=== PATIENT | female | born 1935 | race Caucasian/White ===

== ENCOUNTER 2023-01-29 10:05 | Inpatient (IN) | payer OTHER ==
[2023-01-29 11:27] LABS: HEMATOCRIT 23.6 % (32.4-45.2); HEMOGLOBIN 7.6 GM/dL (10.7-15.3); MCH 27.5 pg (25.7-33.7); MEAN PLT VOLUME 7.7 fl (7.5-11.1); PLATELET COUNT 200 10^3/uL (134-434); RBC 2.75 M/mm3 (3.60-5.2); RDW 14.9 % (11.6-15.6); WHITE BLOOD COUNT 13.5 K/mm3 (4.0-10.0)
[2023-01-29 11:39] LABS: INR 1.03 (0.83-1.09)
[2023-01-29 11:48] LABS: POTASSIUM 4.1 mmol/L (3.5-5.1)
[2023-01-29 11:52] LABS: CALCIUM 7.7 mg/dL (8.5-10.1)
[2023-01-29 11:53] LABS: ALBUMIN 2.6 g/dl (3.4-5.0); BLOOD UREA NITROGEN 38.7 mg/dL (7-18)
[2023-01-29 11:56] LABS: ACTIVATED PTT > 400.0 SECONDS (25.2-36.5)
[2023-01-29 11:57] LABS: BILIRUBIN,TOTAL 0.7 mg/dL (0.2-1); CREATININE 0.9 mg/dL (0.55-1.3)
[2023-01-29] MEDS ORDERED: methylPREDNISolone NA SUCC 125 MG/2 ML VIAL IVPUSH ONE (12:08)
[2023-01-29] MEDS ORDERED: PANTOPRAZOLE SODIUM 40 MG VIAL ONE (12:29)
[2023-01-29] MEDS ORDERED: methylPREDNISolone NA SUCC 125 MG/2 ML VIAL ONE (12:29)
[2023-01-29] MEDS: D5-1/2NS+20 MEQ KCL - 20 MEQ/1,000 ML INFUS.BAG IV SCH (12:43)
[2023-01-29] MEDS: PANTOPRAZOLE SODIUM 40 MG VIAL IVPUSH SCH (12:43)
[2023-01-29 13:52] LABS: BASO % 0.2 % (0-2.0); HEMATOCRIT 20.4 % (32.4-45.2); LYMPH % 4.6 % (8-40); MCH 27.6 pg (25.7-33.7); MCHC 33.2 g/dl (32.0-36.0); MEAN CELL VOLUME 83.1 fl (80-96); MEAN PLT VOLUME 7.3 fl (7.5-11.1); NEUT % 90.2 % (42.8-82.8); PLATELET COUNT 224 10^3/uL (134-434); RBC 2.45 M/mm3 (3.60-5.2); RDW 14.8 % (11.6-15.6)
[2023-01-29 14:00] LABS: HEMOGLOBIN 6.8 GM/dL (10.7-15.3)
[2023-01-29 18:19] VITALS: BMI 18.8
[2023-01-29] MEDS: ATORVASTATIN CA 10 MG TABLET (FP) PO SCH (21:56)
[2023-01-30] MEDS: PANTOPRAZOLE SODIUM 40 MG VIAL IVPUSH SCH ×2 (01:03→09:25)
[2023-01-30 03:21] LABS: HEMATOCRIT 26.6 % (32.4-45.2); HEMOGLOBIN 9.1 GM/dL (10.7-15.3); MCH 28.8 pg (25.7-33.7); MEAN CELL VOLUME 84.5 fl (80-96); MEAN PLT VOLUME 7.1 fl (7.5-11.1); PLATELET COUNT 180 10^3/uL (134-434); RBC 3.15 M/mm3 (3.60-5.2); RDW 14.6 % (11.6-15.6); WHITE BLOOD COUNT 8.4 K/mm3 (4.0-10.0)
[2023-01-30 04:16] LABS: ANISOCYTOSIS 1+; MACROCYTOSIS 0
[2023-01-30] MEDS: LEVOTHYROXINE NA 100 MCG TABLET (FP) PO SCH (07:28)
[2023-01-30] MEDS: metoPROLOL SUCCINATE 25 MG TAB.SR.24H (FP) PO SCH (09:25)
[2023-01-30 10:12] LABS: BASO % 0.1 % (0-2.0); HEMATOCRIT 26.3 % (32.4-45.2); LYMPH % 5.8 % (8-40); MCH 29.1 pg (25.7-33.7); MCHC 34.1 g/dl (32.0-36.0); MEAN CELL VOLUME 85.6 fl (80-96); MEAN PLT VOLUME 7.5 fl (7.5-11.1); MONO % 8.4 % (3.8-10.2); NEUT % 85.7 % (42.8-82.8); PLATELET COUNT 187 10^3/uL (134-434); RBC 3.08 M/mm3 (3.60-5.2); WHITE BLOOD COUNT 9.4 K/mm3 (4.0-10.0)
[2023-01-30] MEDS: HYDROCORTISONE SOD SUCCINATE 100 MG/2 ML VIAL IVPB SCH ×2 (10:23→18:04)
[2023-01-30 10:26] LABS: POTASSIUM 3.9 mmol/L (3.5-5.1)
[2023-01-30 10:39] LABS: CALCIUM 7.7 mg/dL (8.5-10.1)
[2023-01-30 10:40] LABS: ALBUMIN 2.5 g/dl (3.4-5.0); BLOOD UREA NITROGEN 24.3 mg/dL (7-18)
[2023-01-30 10:43] LABS: CREATININE 0.8 mg/dL (0.55-1.3)
[2023-01-30 10:44] LABS: TOT PROT 4.6 g/dl (6.4-8.2)
[2023-01-30 10:45] LABS: BILIRUBIN,TOTAL 0.7 mg/dL (0.2-1)
[2023-01-30] MEDS: D5-1/2NS+20 MEQ KCL - 20 MEQ/1,000 ML INFUS.BAG IV SCH (14:11)
[2023-01-30] MEDS: ATORVASTATIN CA 10 MG TABLET (FP) PO SCH (21:33)
[2023-01-31] MEDS: HYDROCORTISONE SOD SUCCINATE 100 MG/2 ML VIAL IVPB SCH ×3 (01:35→17:24)
[2023-01-31] MEDS: D5-1/2NS+20 MEQ KCL - 20 MEQ/1,000 ML INFUS.BAG IV SCH ×2 (01:37→13:20)
[2023-01-31] MEDS: LEVOTHYROXINE NA 100 MCG TABLET (FP) PO SCH (06:04)
[2023-01-31] MEDS: PANTOPRAZOLE 40 MG TABLET PO SCH (10:00)
[2023-01-31] MEDS: metoPROLOL SUCCINATE 25 MG TAB.SR.24H (FP) PO SCH (10:00)
[2023-01-31 11:16] LABS: BASO % 0.1 % (0-2.0); EOS % 0.1 % (0-4.5); HEMATOCRIT 26.7 % (32.4-45.2); HEMOGLOBIN 9.2 GM/dL (10.7-15.3); LYMPH % 4.7 % (8-40); MCH 29.1 pg (25.7-33.7); MCHC 34.3 g/dl (32.0-36.0); MEAN CELL VOLUME 84.7 fl (80-96); MEAN PLT VOLUME 7.1 fl (7.5-11.1); MONO % 7.1 % (3.8-10.2); PLATELET COUNT 218 10^3/uL (134-434); RBC 3.15 M/mm3 (3.60-5.2); RDW 15.2 % (11.6-15.6); WHITE BLOOD COUNT 8.4 K/mm3 (4.0-10.0)
[2023-01-31 11:47] LABS: IRON SERUM 27 ug/dL (50-175)
[2023-01-31 11:48] LABS: TOTAL IRON BINDING CAPACITY 278 ug/dL (250-450)
[2023-01-31] MEDS ORDERED: IRON SUCROSE INJECTION 200 MG in SODIUM CHLORIDE 90 ML IVPB ONE (15:00)
[2023-01-31 15:50] VITALS: RESP 20
[2023-01-31] MEDS: ATORVASTATIN CA 10 MG TABLET (FP) PO SCH (22:09)
[2023-02-01] MEDS: HYDROCORTISONE SOD SUCCINATE 100 MG/2 ML VIAL IVPB SCH (02:10)
[2023-02-01] MEDS: LEVOTHYROXINE NA 100 MCG TABLET (FP) PO SCH (06:11)
[2023-02-01 10:00] LABS: HEMATOCRIT 30.5 % (32.4-45.2); MCH 28.8 pg (25.7-33.7); MCHC 32.9 g/dl (32.0-36.0); MEAN CELL VOLUME 87.6 fl (80-96); MEAN PLT VOLUME 7.5 fl (7.5-11.1); PLATELET COUNT 246 10^3/uL (134-434); RBC 3.48 M/mm3 (3.60-5.2); RDW 15.5 % (11.6-15.6); WHITE BLOOD COUNT 12.4 K/mm3 (4.0-10.0)
[2023-02-01] MEDS ORDERED: CALCIUM 250MG/VIT-D 125 UNITS 1 COMBO TABLET PO SCH (10:00)
[2023-02-01] MEDS ORDERED: predniSONE 20 MG TABLET (UD) PO SCH (10:00)
[2023-02-01] MEDS: PANTOPRAZOLE 40 MG TABLET PO SCH (10:18)
[2023-02-01] MEDS: metoPROLOL SUCCINATE 25 MG TAB.SR.24H (FP) PO SCH (10:18)
[2023-02-01 10:24] LABS: POTASSIUM 3.6 mmol/L (3.5-5.1)
[2023-02-01 13:07] VITALS: BP 133/71; PULSE 73; TEMP 97.8
== END 2023-02-01 15:11 | disposition home or self-care (01) | DRG 386 ==
LOC: JER 10:05 → JERBED 11:32 → J8W 17:38
PROVIDERS: ADMIT Family Medicine; ATTEND Family Medicine
DX: K50.011 Crohn's disease of small intestine with rectal bleeding (principal); Z68.1 Body mass index [BMI] 19.9 or less, adult; I10 Essential (primary) hypertension; E78.5 Hyperlipidemia, unspecified; K57.90 Diverticulosis of intestine, part unspecified, without perforation or abscess without bleeding; E03.9 Hypothyroidism, unspecified; D50.0 Iron deficiency anemia secondary to blood loss (chronic); K31.819 Angiodysplasia of stomach and duodenum without bleeding; R63.0 Anorexia
CPT/HCPCS: 36415; 36430; 74174-TC; 80048; 80053; 82272; 82607; 82728; 83516; 83540; 83550; 84443; 85025; 85027; 85610; 85730; 86140; 86255; 86671; 86922; 99285-25; J1756; P9058

== ENCOUNTER 2023-02-28 16:22 | Emergency (ER) | payer OTHER ==
[2023-02-28 16:46] VITALS: BMI 20.1
[2023-02-28] MEDS ORDERED: PANTOPRAZOLE SODIUM 40 MG VIAL IVPUSH ONE (16:46)
[2023-02-28] MEDS ORDERED: MAG HYDROX/AL HYDROX/SIMETH 30 ML UNIT-DOSE CUP PO ONE (16:46)
[2023-02-28 17:09] LABS: HEMATOCRIT 37.5 % (32.4-45.2); HEMOGLOBIN 12.3 G/dL (10.7-15.3); MCH 28.7 pg (25.7-33.7); MCHC 32.9 g/dl (32.0-36.0); MEAN CELL VOLUME 87.4 fl (80-96); MEAN PLT VOLUME 6.8 fl (7.5-11.1); PLATELET COUNT 233.5 10^3/uL (134-434); RBC 4.29 10^6/uL (3.60-5.2); RDW 15.6 % (11.6-15.6); WHITE BLOOD COUNT 12.7 10^3/uL (4.0-10.8)
[2023-02-28] MEDS ORDERED: MAG HYDROX/AL HYDROX/SIMETH 30 ML UNIT-DOSE CUP ONE (17:23)
[2023-02-28] MEDS ORDERED: PANTOPRAZOLE SODIUM 40 MG VIAL ONE (17:23)
[2023-02-28 17:29] LABS: INR 1.52 (0.83-1.09); PROTHROMBIN TIME (PATIENT) 17.6 SEC (9.7-13.0)
[2023-02-28 17:56] LABS: ALBUMIN 3.3 g/dl (3.4-5.0); BILIRUBIN,TOTAL 8.5 mg/dl (0.2-1); BLOOD UREA NITROGEN 24.4 mg/dl (7-18); CALCIUM 8.1 mg/dl (8.5-10.1); CREATININE 1.4 mg/dl (0.6-1.3); MAGNESIUM 1.6 mg/dL (1.8-2.4); POTASSIUM 4.3 mmol/L (3.5-5.1); SGOT/AST 190.7 U/L (15-37); SGPT/ALT 521.8 U/L (7-52); TOT PROT 5.1 g/dl (6.4-8.2)
[2023-02-28] MEDS ORDERED: SODIUM CHLORIDE 0.9% 1000 ML INFUS.BAG IV ONE (18:13)
[2023-02-28] MEDS ORDERED: MAGNESIUM SULF 50% (8.12 MEQ/2 ML-1 GM VIAL) IVPB ONE (18:15)
[2023-02-28] MEDS ORDERED: MAGNESIUM SULFATE IN WATER 2 GM/50 ML IVPB IVPB ONE (18:29)
[2023-02-28 18:33] LABS: PLATELET ESTIMATE ADEQUATE
[2023-02-28] MEDS ORDERED: morphine CARPU-JECT 2 MG/1 ML DISP.SYRIN IVPUSH ONE (18:44)
[2023-02-28] MEDS ORDERED: ONDANSETRON 4 MG/2 ML VIAL IVPUSH ONE (18:44)
[2023-02-28] MEDS ORDERED: ONDANSETRON 4 MG/2 ML VIAL ONE (18:46)
[2023-02-28 20:23] LABS: EPITHELIAL CELLS FEW /hpf
[2023-02-28] MEDS ORDERED: PIPERACILLIN/TAZOBACTAM 4.5 GM VIAL IVPB ONE (20:30)
[2023-02-28] MEDS ORDERED: PIPERACILLIN/TAZOB 4.5 GM 4.5 GM in DEXTROSE 5%-WATER 100 ML IVPB ONE (20:30)
[2023-03-01] MEDS ORDERED: morphine CARPU-JECT 2 MG/1 ML DISP.SYRIN IVPUSH ONE (02:24)
[2023-03-01 02:30] VITALS: RESP 18
[2023-03-01 03:45] VITALS: BP 117/62; PULSE 85; TEMP 98.1
== END 2023-03-01 04:13 | disposition short-term general hospital (02) ==
LOC: FER 16:22
PROC: 3E03329 Introduction of Other Anti-infective into Peripheral Vein, Percutaneous Approach (ICD-10-PCS; principal; 2023-02-28)
PROC: 3E033GC Introduction of Other Therapeutic Substance into Peripheral Vein, Percutaneous Approach (ICD-10-PCS; 2023-02-28)
PROC: 3E033GC Introduction of Other Therapeutic Substance into Peripheral Vein, Percutaneous Approach (ICD-10-PCS; 2023-02-28)
PROC: 3E033GC Introduction of Other Therapeutic Substance into Peripheral Vein, Percutaneous Approach (ICD-10-PCS; 2023-02-28)
DX: R07.89 Other chest pain (principal); R10.84 Generalized abdominal pain; N17.9 Acute kidney failure, unspecified; R74.01 Elevation of levels of liver transaminase levels; Z20.822 Contact with and (suspected) exposure to COVID-19
CPT/HCPCS: 36415; 71045-TC-FY; 74176-TC; 76705-TC; 80053; 81003; 81015; 82272; 83690; 83735; 84443; 84484; 85027; 85610; 85730; 86850; 86900; 86901; 87635; 93005; 99285-25

== ENCOUNTER 2025-01-23 07:34 | Day surgery (SDC) | payer OTHER ==
[2025-01-14 16:13] VITALS: BMI 19.1
[2025-01-23] MEDS: PHENYLEPHRINE 2.5% OPTHALMIC DROP 2ML BOTTLE ONE (08:00)
[2025-01-23] MEDS: TROPICAMIDE 1% 3 ML EYE DROPS ONE (08:00)
[2025-01-23] MEDS: CYCLOPENTOLATE 2% OPHTH SOLN 2 ML BOTTLE ONE (08:00)
[2025-01-23] MEDS: CIPROFLOXACIN 0.3% EYE DROPS 5 ML BOTTLE ONE (08:00)
[2025-01-23] MEDS ORDERED: TETRACAINE 0.5% OPHTH SOLN 2 ML BOTTLE ONE (08:47)
[2025-01-23] MEDS ORDERED: NEO/POLYMYX B SULF/DEXAMETH OPHTHALMIC 5ML BOTTLE ONE (08:47)
[2025-01-23] MEDS ORDERED: LIDOCAINE 1% P/F 10 MG/ML VIAL ONE (08:47)
[2025-01-23] MEDS ORDERED: CARBACHOL 0.01% INTRA-OCULAR 1.5 ML VIAL ONE (08:47)
[2025-01-23] MEDS ORDERED: BSS (NA/CA/MG/K) BALANCED SALT SOLUTION OPHTH SOLN 15 ML BOTTLE ONE (08:47)
[2025-01-23] MEDS ORDERED: EPINEPHrine 1:1000 P/F - 1 MG/ML AMP ONE (08:47)
[2025-01-23] MEDS ORDERED: MIDAZOLAM HCL 2 MG/2 ML SINGLE DOSE VIAL ONE (08:58)
[2025-01-23 09:39] VITALS: RESP 16; TEMP 97.1
[2025-01-23 10:01] VITALS: BP 114/67; PULSE 61
== END 2025-01-23 10:10 | disposition home or self-care (01) ==
LOC: FASU 07:34
PROVIDERS: ATTEND Ophthalmology
PROC: 08RJ3JZ Replacement of Right Lens with Synthetic Substitute, Percutaneous Approach (ICD-10-PCS; principal; 2025-01-23 09:05)
DX: H26.8 Other specified cataract (principal)
CPT/HCPCS: 66984; V2632